=== PATIENT | female | born 1950 | race Caucasian/White ===

== ENCOUNTER → 2016-05-24 | Outpatient (CLI) | payer BC ==
[~2016-05-24] MED LIST: CHOL1000 PO; CIPR1TAB11 PO; FURO-85 PO; HYDR-5688 PO; IBAN150T PO; LIFI5DRO OPB; NITR1CAP16 PO; TAMS0.4C38 PO
--- NOTE | 2016-05-24 15:35 | MAMMOGRAPHY REPORT ---
BILATERAL DIGITAL SCREENING MAMMOGRAM WITH CAD: 05/24/2016 CLINICAL HISTORY: Routine screening. Patient has no complaints. TECHNIQUE: Current study was also evaluated with a Computer Aided Detection (CAD) system. Bilatera l CC and MLO views were obtained. COMPARISON: Comparison is made to exams dated: 05/15/2015 mammogram, 05/10/2014 mammogram, 03/24/2013 m ammogram, 03/19/2012 mammogram, 02/04/2011 mammogram, and 02/02/2010 mammogram - [facility]. BREAST COMPOSITION: There are scattered areas of fibroglandular density in both breasts. FINDINGS: No suspicious masses, calcifications, or areas of architectural distortion are noted in e ither breast. There has been no significant interval change compared to prior exams. IMPRESSION: ACR BI-RADS CATEGORY 1: NEGATIVE There is no mammographic evidence of malignancy. A 1 year screening mammogram is recommended. The p atient will receive written notification of the results. Approximately 10% of breast cancers are not detected with mammography. A negative mammographic repor t should not delay biopsy if a clinically suggestive mass is present. Alva Myles M.D. ah/:05/24/2016 14:57:06 Flight Test Shop Mechanic: Raj KHALIL(Tremayne)(M), [facility] letter sent: Normal 1/2 BI-RADS Code: ACR BI-RADS Category 1: Negative
== END | disposition home or self-care (01) ==
LOC: C.MAMM 13:57
PROVIDERS: ATTEND Obstetrics & Gynecology
DX: Z12.31 Encounter for screening mammogram for malignant neoplasm of breast (principal)

== ENCOUNTER → 2016-11-22 | Day surgery (SDC) | payer BC ==
[2016-11-19 09:31] VITALS: Ht 172.7 cm; Wt 65.9 kg
[~2016-11-22] VITALS: Ht 172.7 cm; Wt 65.9 kg
[~2016-11-22] MED LIST changes: +ATROPINE SULFATE 0.1 MG/ML 5ML SYR IV PRN; +CEFTRIAXONE 1000 MG IV SCH; +CEFTRIAXONE SOD INJ 1000 MG in DEXTROSE 5% 50ML XX SCH; -CIPR1TAB11 PO; +EpHEDrine SULFATE 50MG/5ML SYR ONE; +EpHEDrine SULFATE INJ 50 MG/ML AMP IV PRN; +FENTANYL CITRATE INJ 50 MCG/1 ML 2 ML VIAL IV PRN; +FENTANYL CITRATE INJ 50 MCG/1 ML 2 ML VIAL ONE; -FURO-85 PO; +LACTATED RINGER'S 1000ML 1,000 ML IV SCH; +LIDOCAINE HCL 2% 2 ML VIAL (20MG/ML) ONE; +MIDAZOLAM HCL 1 MG/ML 2ML VIAL ONE; +ONDANSETRON INJ 2 MG/ML 2 ML VIAL IV PRN; +ONDANSETRON INJ 2 MG/ML 2 ML VIAL ONE; +PROMETHAZINE HCL INJ 6.25 MG in SODIUM CHLORIDE 0.9% 50ML 50 ML IV PRN; +PROPOFOL IV EMULSION 10 MG/ML 20 ML VIAL IV ONE
--- NOTE | 2016-11-22 06:48 | History & Physical Bridge Note ---
H&P Re-Evaluation Bridge Note: I have examined the patient, reviewed the History & Physical and in the interval since the performance of the History & Physical I have noted the following changes of clinical significance: No changes noted
--- NOTE | 2016-11-22 08:02 | [facility] Operative Report ---
Operative Report Operative Date Nov 22, 2016. Pre-Operative Diagnosis Right Renal Stone Post-Operative Diagnosis Same Procedure(s) Performed Right Extracorporeal Shock Wave Lithotripsy Surgeon Dr. Roldan Fuel Pilot Engineer Surgeon(s) None Estimated Blood Loss 0mL Findings radio-opaque right kidney stones Fluids (cc crystalloids) 1100mL Specimens None Drains none Anesthesia LMA Complication(s) None Disposition Recovery Room / PACU Indications enlarging right renal stone Description of Procedure Patient had general LMA anesthesia and was placed in supine position with her right flank pressed against the head of lithotripsy machine. Fluoro was used to position the stone in the crosshairs of the focal point. We delivered 200 shocks at low power and then observed a 2 minute rest. We then delivered a total of 2400 shocks gradually increasing the power. The stone was seen to spread out during treatment. She tolerated procedure well and transferred to recovery in stable condition. Plan; home today strain urine to gather a few pieces. 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 I attest to the content of the Intraoperative Record and any orders documented therein. Any exceptions are noted below.
--- NOTE | 2016-11-22 08:08 | Discharge Instructions ---
Discharge Instructions Date of Service Nov 22, 2016. Admission Reason for Admission: Right Kidney Stone Discharge Discharge Diagnosis / Problem: right kidney stones Discharge Goals Goal(s): Improve disease control Activity Recommendations Activity Limitations: resume your previous activity Lifting Limitations: none Exercise/Sports Limitations: none Shower/Bathe: no limitations Driving or Machine Use: resume 1 day after discharge . Instructions / Follow-Up Instructions / Follow-Up drink extra water lie on left side to encourage passage of stones out of right kidney strain urine to catch a few fragments take flomax daily to ease pain with stone passage take macrobid 2 x per day to cover against any infection in the stone use ibuprofen for mild to moderate pain 600mg every 8 hours with food use narcotic for severe pain we will get an x-ray in 3-4 weeks to see how stone is breaking up Discharge Diet Recommended Diet: Regular Diet Procedures Procedures Performed: Right Extracorporeal Shock Wave Lithotripsy Pending Studies Studies pending at discharge: no Medical Emergencies . Who to Call and When: Medical Emergencies: If at any time you feel your situation is an emergency, please call 911 immediately. . Non-Emergent Contact Non-Emergency issues call your: Urologist ([phone] or [phone]) Call Non-Emergent contact if: temperature is above 100.5, your pain is not controlled . . "Provider Documentation" section prepared by Karla Roldan. . VTE Core Measure Inpt VTE Proph given/why not?: SCD's [place] Drug Monitoring Program Search Results: patient reviewed within database, no issues identified
[2016-11-22 08:39] VITALS: TEMP 36.5
--- NOTE | 2016-11-22 08:51 | Anesthesia Progress Nt - [facility] ---
Anesthesia Post Op Note Date & Time Nov 22, 2016 at 08:51 Vital Signs Pain Intensity: 0 Vital Signs Past 12 Hours Date Time Temp Pulse Resp B/P (MAP) Pulse Ox O2 Delivery O2 Flow Rate FiO2 11/22/16 08:39 36.5 73 20 96/58 (71) 98 Room Air 11/22/16 08:31 103/67 11/22/16 08:30 36.8 70 14 114/58 98 Room Air 11/22/16 08:27 67 17 99 11/22/16 08:27 68 17 11/22/16 08:26 114/58 11/22/16 08:22 77 23 11/22/16 08:22 23 11/22/16 08:21 110/57 11/22/16 08:20 75 17 100 11/22/16 08:20 71 17 11/22/16 08:16 118/62 11/22/16 08:15 72 14 11/22/16 08:15 73 14 100 11/22/16 08:11 117/61 11/22/16 08:10 71 15 100 11/22/16 08:10 72 15 11/22/16 08:06 116/59 11/22/16 08:05 71 17 11/22/16 08:05 69 17 100 11/22/16 08:01 118/66 11/22/16 08:00 36.4 74 12 118/66 100 Diffusion Mask 6 11/22/16 06:32 36.6 68 18 102/65 (77) 95 Room Air Notes Mental Status: alert / awake / arousable, participated in evaluation Pt Amnestic to Procedure: Yes Nausea / Vomiting: adequately controlled Pain: adequately controlled Airway Patency, RR, SpO2: stable & adequate BP & HR: stable & adequate Hydration State: stable & adequate Anesthetic Complications: no major complications apparent
[2016-11-22 09:12] VITALS: BP 111/59; PULSE 64; O2SAT 99
== END | disposition home or self-care (01) ==
LOC: X.SURG 06:19
PROVIDERS: ATTEND Urology
DX: N20.0 Calculus of kidney (principal); Z87.442 Personal history of urinary calculi

== ENCOUNTER → 2017-07-02 | Outpatient (CLI) | payer BC ==
[~2017-07-02] MED LIST changes: -ATROPINE SULFATE 0.1 MG/ML 5ML SYR IV PRN; -CEFTRIAXONE 1000 MG IV SCH; -CEFTRIAXONE SOD INJ 1000 MG in DEXTROSE 5% 50ML XX SCH; -EpHEDrine SULFATE 50MG/5ML SYR ONE; -EpHEDrine SULFATE INJ 50 MG/ML AMP IV PRN; -FENTANYL CITRATE INJ 50 MCG/1 ML 2 ML VIAL IV PRN; -FENTANYL CITRATE INJ 50 MCG/1 ML 2 ML VIAL ONE; -HYDR-5688 PO; -LACTATED RINGER'S 1000ML 1,000 ML IV SCH; -LIDOCAINE HCL 2% 2 ML VIAL (20MG/ML) ONE; -MIDAZOLAM HCL 1 MG/ML 2ML VIAL ONE; -NITR1CAP16 PO; -ONDANSETRON INJ 2 MG/ML 2 ML VIAL IV PRN; -ONDANSETRON INJ 2 MG/ML 2 ML VIAL ONE; -PROMETHAZINE HCL INJ 6.25 MG in SODIUM CHLORIDE 0.9% 50ML 50 ML IV PRN; -PROPOFOL IV EMULSION 10 MG/ML 20 ML VIAL IV ONE; -TAMS0.4C38 PO
--- NOTE | 2017-07-02 15:24 | MAMMOGRAPHY REPORT ---
BILATERAL DIGITAL SCREENING MAMMOGRAM TOMOSYNTHESIS WITH CAD: 07/02/2017 CLINICAL HISTORY: Routine screening. Patient has no complaints. TECHNIQUE: Breast tomosynthesis in addition to standard 2D mammography was performed. Current study was also evaluated with a Computer Aided Detection (CAD) system. COMPARISON: Comparison is made to exams dated: 05/24/2016 mammogram, 05/15/2015 mammogram, 05/10/2014 ma mmogram, 03/24/2013 mammogram, 02/04/2011 mammogram, and 02/02/2010 mammogram - [facility]. BREAST COMPOSITION: There are scattered areas of fibroglandular density in both breasts. FINDINGS: No suspicious masses, calcifications, or areas of architectural distortion are noted in ei ther breast. There has been no significant interval change compared to prior exams. IMPRESSION: ACR BI-RADS CATEGORY 1: NEGATIVE There is no mammographic evidence of malignancy. A 1 year screening mammogram is recommended. The pa tient will receive written notification of the results. Approximately 10% of breast cancers are not detected with mammography. A negative mammographic report should not delay biopsy if a clinically suggestive mass is present. Alva Myles M.D. ah/:07/02/2017 12:14:33 Commission Auditor: Sophie KHALIL(Tremayne)(E[place]), [facility] letter sent: Normal 1/2 BI-RADS Code: ACR BI-RADS Category 1: Negative
== END | disposition home or self-care (01) ==
LOC: C.MAMM 11:37
PROVIDERS: ATTEND Obstetrics & Gynecology
DX: Z00.00 Encounter for general adult medical examination without abnormal findings (principal)

== ENCOUNTER 2020-04-11 11:36 | Inpatient (IN) ==
--- NOTE | 2020-04-11 12:05 | Emergency Department Note ---
Impression & Plan Closed fracture of left hip, Fall ED Provider Note NAME: DAINA VIDALES AGE: 70 SEX: F : 1950 ARRIVES VIA: Walk-In INFORMANT: [Patient] ED PROVIDER(S): [Lane Mccallum MD] CHIEF COMPLAINT: Hip pain HISTORY OF PRESENT ILLNESS: The patient is a 70-year-old female who states that last night around 9:00, 15 hours ago, she tripped over her feet and fell onto her left hip. She states that she has 9/10 pain to try to walk, sitting still she has no pain. She de nies any loss of consciousness, she has no neck pain or headache or back pain. No chest pain or abdominal pain. No numbness down the left leg. Since today she was still having as much discomfort as last evening, she came for evaluation, she is concerned for fracture. REVIEW OF SYSTEMS: See HPI for pertinent positives and negatives. A total of ten systems were revi ewed and were otherwise negative. PMHx/PSHx: See Below SOCIAL HISTORY: See Below. PHYSICAL EXAM: GENERAL: Patient is in no acute distress. HEENT: No acute trauma, normocephalic atraumatic, mucous membranes moist, no nasal congestion, no scleral icterus. NECK: No stridor, no adenopathy, no meningismus, trachea is midline. LUNGS: Clear to auscultation bilaterally, no wheeze, no rhonchi, breath sounds equal. HEART: Without murmurs gallops or rubs, regular rate and rhythm. ABDOMEN: Soft, nontender, bowel sounds positive, no hernias, no peritonitis. EXTREMITIES: No cyanosis or edema. The patient does have some pain to move the left hip. No obvious gross deformity to the left lower extremity. No pain to palpate the bones of the left hip. The pelvis is stable with rock. She has strong distal left lower extremity pulses. NEUROLOGIC: Oriented x 3, no acute motor or sensory deficits, no focal weakness. SKIN: No rash, no jaundice, no diaphoresis. DIFFERENTIAL DIAGNOSIS: Muscular strain, fracture, dislocation, DVT, joint effusion, infection, soft tissue injury, vascular compromise, as well as other pathologies. EMERGENCY DEPARTMENT COURSE/PROCEDURES: ECG: Indication was hip fracture. The ECG shows a normal sinus rhythm with a rate of 69. There is no ST elevation, no PVCs. The QTc is 437. Continuous Cardiac Monitoring: An order was placed for continuous cardiac monitoring. The monitor shows a rate of 73 with normal sinus rhythm. MEDICAL DECISION MAKING: There is no leukocytosis or concerning anemia. There is a normal platelet count. No coagulopathy. No significant electrolyte abnormality or kidney failure. No concerning liver enzyme elevation. Urinalysis returned showing the possibility of an infection. Pelvis and left hip films showed a potential subtle fracture to the left hip, no significant deformity, no left hip dislocation. CT of the left hip did show a subtle nondisplaced hip fracture. Chest film did not show pneumonia, CHF or mediastinal widening. ECG showed a sinus rhythm, no acute ischemia. On exam, the patient did have some pain to move the left hip but no pain when she was sitting still. She was not toxic or febrile. The patient is in need of a hospital stay. She has fractured her hip from the fall. I discussed the findings with the patient. I did speak with case management, I discussed the findings with her son who is a physician at this [facility]. The on-call hospitalist has been consulted. Orthopedics has been consulted. It appears the only serious injury from this fall was to the left hip. Past Med/Surg History Medical History ASCVD (arteriosclerotic cardiovascular disease) Cystocele History of nephrolithiasis Osteoporosis Vaginal pessary in situ Surgical History History of colonoscopy History of oophorectomy Family History Mother Alive and well Father , 76 Stroke Social History Smoking Status: Former smoker Smoking End Date: 1987; Second Hand Exposure: No; Do You Dip or Chew Tobacco: No (quit 32 years ago); Tobacco Cessation Education Requested by Patient: No Hx Alcohol Use: Yes Alcohol type: wine Hx Substance Use: No Preferred Language: Sinhala Mechanical Estimator Required: No Beliefs That Will Affect Care: None marital status: Current Living Situation: Parent Current Living Situation Comment: takes care of 99 year old mother Other Information That Helps Us Care for You: No Feels Safe at Home: Yes Safety Concerns: Feels Safe At This Time Assistive Devices: Walker Allergies Allergies Allergy/AdvReac Type Severity Reaction Status Date / Time No Known Allergies Allergy Unverified 04/11/20 13:03 Home Meds Home Medications Medication Instructions Recorded Confirmed cholecalciferol (vitamin D3) 10 mcg PO DAILY 04/11/20 04/11/20 conjugated estrogens [Premarin] 1 applic VAGINAL WK 04/11/20 04/11/20 ibandronate 150 mg PO MONTHLY 04/11/20 04/11/20 lifitegrast [Xiidra] 1 drp OPB QAM 04/11/20 04/11/20 Results & Data (ED) Vital Signs Vital Signs - 24 hr 04/11/20 11:44 04/11/20 14:08 Temperature 36.9 C Temperature Source Oral Pulse Rate 67 85 Pulse Rate from SpO2 Sensor 85 Pulse Rhythm Regular Pulse Strength Normal Respiratory Rate 20 16 Respiratory Effort / Characteristics Non-Labored Respiratory Depth Normal Respiratory Pattern Regular Blood Pressure 128/74 103/54 L Blood Pressure Mean 92 70 Blood Pressure Position Sitting Pulse Oximetry 98 99 Oxygen Delivery Method Room Air Sepsis Recent Fever Within 48 Hours No Sepsis New/Unexplained Change in Mental Status No Sepsis Action Taken by Nursing No Action Required Home Medications Current Medication List: was personally reviewed by me Laboratory Data Attestation: I reviewed the patient's lab results. Result diagrams: 04/11/20 13:12 04/11/20 13:12 Lab Results 04/11/20 04/11/20 04/11/20 Range/Units 13:12 13:12 13:12 WBC 4.34 L (4.8-10.8) K/uL RBC 3.97 L (4.2-5.4) M/uL Hgb 12.3 (12.0-16.0) g/dL Hct 37.5 (37-47) % MCV 94.5 (80-100) fL MCH 31.0 (25-34) pg MCHC 32.8 (32-36) g/dL RDW Std Deviation 47.1 H (36.4-46.3) fL RDW Coeff of Oksana 13.6 (11.5-14.5) % Plt Count 165 (130-400) K/uL MPV 10.9 H (7.4-10.4) fL Immature Gran % (Auto) 0.2 % Neut % (Auto) 68.8 % Lymph % (Auto) 20.5 % Bent % (Auto) 9.4 % Eos % (Auto) 0.9 % Baso % (Auto) 0.2 % Neut # (Auto) 2.98 (1.4-6.5) K/uL Lymph # (Auto) 0.89 L (1.2-3.4) K/uL Bent # (Auto) 0.41 (0.11-0.59) K/uL Eos # (Auto) 0.04 (0-0.5) K/uL Baso # (Auto) 0.01 (0-0.2) K/uL Immature Gran # (Auto) 0.01 (0.00-0.02) K/uL PT 10.0 (9.0-12.0) Seconds INR 1.0 (0.9-1.1) APTT 25.4 (21.0-31.0) Seconds PTT Ratio 1.0 Sodium (136-145) mmol/L Potassium (3.5-5.1) mmol/L Chloride (98-107) mmol/L Carbon Dioxide (21-32) mmol/L Anion Gap (3-11) BUN (7-18) mg/dl Creatinine (0.6-1.2) mg/dl Est Cr Clr Drug Dosing ml/min Est GFR ( Amer) Est GFR (Non-Af Amer) BUN/Creatinine Ratio (10-20) Glucose (70-99) mg/dl Calcium (8.5-10.1) mg/dl Total Bilirubin (0.2-1) mg/dl AST (15-37) U/L ALT (12-78) U/L Alkaline Phosphatase (45-117) U/L Total Protein (6.4-8.2) gm/dl Albumin (3.4-5.0) gm/dl Globulin (2.5-4.0) gm/dl Albumin/Globulin Ratio (0.9-2) COVID-19 Eval Order SARS-CoV-2, RNA, NAAT (NEGATIVE) Blood Type O Positive Antibody Screen NEGATIVE 04/11/20 04/11/20 04/11/20 Range/Units 13:12 14:10 14:10 WBC (4.8-10.8) K/uL RBC (4.2-5.4) M/uL Hgb (12.0-16.0) g/dL Hct (37-47) % MCV (80-100) fL MCH (25-34) pg MCHC (32-36) g/dL RDW Std Deviation (36.4-46.3) fL RDW Coeff of Oksana (11.5-14.5) % Plt Count (130-400) K/uL MPV (7.4-10.4) fL Immature Gran % (Auto) % Neut % (Auto) % Lymph % (Auto) % Bent % (Auto) % Eos % (Auto) % Baso % (Auto) % Neut # (Auto) (1.4-6.5) K/uL Lymph # (Auto) (1.2-3.4) K/uL Bent # (Auto) (0.11-0.59) K/uL Eos # (Auto) (0-0.5) K/uL Baso # (Auto) (0-0.2) K/uL Immature Gran # (Auto) (0.00-0.02) K/uL PT (9.0-12.0) Seconds INR (0.9-1.1) APTT (21.0-31.0) Seconds PTT Ratio Sodium 141 (136-145) mmol/L Potassium 3.8 (3.5-5.1) mmol/L Chloride 108 H (98-107) mmol/L Carbon Dioxide 27 (21-32) mmol/L Anion Gap 6.0 (3-11) BUN 10 (7-18) mg/dl Creatinine 0.86 (0.6-1.2) mg/dl Est Cr Clr Drug Dosing 58.4 ml/min Est GFR ( Amer) 78.8 Est GFR (Non-Af Amer) 68.0 BUN/Creatinine Ratio 12.1 (10-20) Glucose 93 (70-99) mg/dl Calcium 8.3 L (8.5-10.1) mg/dl Total Bilirubin 0.6 (0.2-1) mg/dl AST 19 (15-37) U/L ALT 22 (12-78) U/L Alkaline Phosphatase 57 (45-117) U/L Total Protein 6.5 (6.4-8.2) gm/dl Albumin 3.5 (3.4-5.0) gm/dl Globulin 3.0 (2.5-4.0) gm/dl Albumin/Globulin Ratio 1.2 (0.9-2) COVID-19 Eval Order Covid19 IDNow [facility] SARS-CoV-2, RNA, NAAT NEGATIVE (NEGATIVE) Blood Type Antibody Screen Imaging Data Radiologist's Impression: XR hip LT 2V w pelvis HISTORY: 70 years-old Female fall, pain acute left-sided hip pain status post fall COMPARISON: CT abdomen and pelvis 11/03/2012 TECHNIQUE: AP view of the pelvis with 2 views of the left hip FINDINGS: Soft tissue prominence lateral to the bilateral hips. Mild bilateral hip osteoarthritis. No avascular necrosis or dislocation. Questioned cortical irregularity at the superior lateral femoral head neck junction on the left. No acute displaced fracture. Pelvic ring is intact. IMPRESSION: Questioned cortical irregularity at the lateral femoral head neck junction on the left is likely normal cortex with a subtle acute nondisplaced fracture considered less likely. CT hip LT wo con HISTORY: 70 years-old Female fall, pain, poss fx acute left hip pain status post fall COMPARISON: Pelvis and left hip radiographs of same day, CT abdomen and pelvis 11/03/2012. TECHNIQUE: Multiple axial CT images of the left hip were obtained without the use of IV contrast. A dose lowering technique was used consistent with the principals of ALARA. FINDINGS: There is a subtle acute nondisplaced subcapital fracture of the left femur which is best seen on the coronal images (for example image 36 series 300 with mild adjacent subcortical sclerosis/impaction. This is also seen on image 73 of series 3. Mild left hip osteoarthritis. No acute displaced fracture or avascular necrosis. The left pelvic ring appears intact. Small left hip joint effusion. Pessary noted within the vagina. IMPRESSION: Confirmation of the acute nondisplaced subcapital fracture of the left femur. XR chest 1V portable HISTORY: 70 years-old Female poss hip fx acute fracture of the left hip COMPARISON: Chest radiograph 11/05/2012 TECHNIQUE: Portable AP view of the chest FINDINGS: Cardiomediastinal and hilar silhouettes are within normal limits. No pneumothor ax, pleural effusion, airspace consolidation or overt pulmonary edema. Bones of the chest appear grossly intact. IMPRESSION: No acute process. Head Trauma GCS Score: 15 Discharge Plan Visit Data Chief Complaint: Hip Pain Stated Complaint: FELL HURT LEFT HIP ED Provider: Lane Mccallum Discharge Problem: Closed fracture of left hip, Fall Patient Disposition: Admitted As Inpatient Condition: Good Discharge Instructions Interventions: ED Discharge Assessment Last Done: 04/11/20 16:45 Discharge Problem: Closed fracture of left hip Qualifiers: Encounter type: initial encounter Qualified Code(s): S72.002A - Fracture of unspecified part of neck of left femur, initial encounter for closed fracture Fall Qualifiers: Encounter type: initial encounter Qualified Code(s): W19.XXXA - Unspecified fall, initial encounter
--- NOTE | 2020-04-11 13:00 | XRay Report ---
XR hip LT 2V w pelvis HISTORY: 70 years-old Female fall, pain acute left-sided hip pain status post fall COMPARISON: CT abdomen and pelvis 11/03/2012 TECHNIQUE: AP view of the pelvis with 2 views of the left hip FINDINGS: Soft tissue prominence lateral to the bilateral hips. Mild bilateral hip osteoarthritis. No avascular necrosis or dislocation. Questioned cortical irregularity at the superior lateral femoral head neck junction on the left. No acute displaced fracture. Pelvic ring is intact. IMPRESSION: Questioned cortical irregularity at the lateral femoral head neck junction on the left is likely normal cortex with a subtle acute nondisplaced fracture considered less likely. ACT 112: Negative or not required by law. The above report was generated using voice recognition software. It may contain grammatical, syntax o r spelling errors. Electronically signed by: Lev Joseph M.D. 04/11/2020 12:59 PM
[2020-04-11 13:25] LABS: Basophils # (auto) 0.01 K/uL (0-0.2); Basophils % (auto) 0.2 %; Eosinophils # (auto) 0.04 K/uL (0-0.5); Eosinophils % (auto) 0.9 %; Hematocrit (blood only) 37.5 % (37-47); Hemoglobin 12.3 g/dL (12.0-16.0); Immature Granulocytes # (auto) 0.01 K/uL (0.00-0.02); Immature Granulocytes % (auto) 0.2 %; Lymphocytes # (auto) 0.89 K/uL (1.2-3.4); Lymphocytes % (auto) 20.5 %; Mean Corpuscular Hgb Conc 32.8 g/dL (32-36); Mean Corpuscular Volume 94.5 fL (80-100); Mean Platelet Volume 10.9 fL (7.4-10.4); Monocytes # (auto) 0.41 K/uL (0.11-0.59); Monocytes % (auto) 9.4 %; Neutrophils # (auto) 2.98 K/uL (1.4-6.5); Neutrophils % (auto) 68.8 %; Platelet Count 165 K/uL (130-400); RDW Coefficient of Variation 13.6 % (11.5-14.5); RDW Standard Deviation 47.1 fL (36.4-46.3); Red Blood Count 3.97 M/uL (4.2-5.4); White Blood Count 4.34 K/uL (4.8-10.8)
[2020-04-11 13:41] LABS: Partial Thromboplastin Time 25.4 Seconds (21.0-31.0)
--- NOTE | 2020-04-11 13:50 | CT Scan Report ---
CT hip LT wo con HISTORY: 70 years-old Female fall, pain, poss fx acute left hip pain status post fall COMPARISON: Pelvis and left hip radiographs of same day, CT abdomen and pelvis 11/03/2012. TECHNIQUE: Multiple axial CT images of the left hip were obtained without the use of IV contrast. A d ose lowering technique was used consistent with the principals of HOA. FINDINGS: There is a subtle acute nondisplaced subcapital fracture of the left femur which is best seen on the coronal images (for example image 36 series 300 with mild adjacent subcortical sclerosis/impaction. T his is also seen on image 73 of series 3. Mild left hip osteoarthritis. No acute displaced fracture o r avascular necrosis. The left pelvic ring appears intact. Small left hip joint effusion. Pessary not ed within the vagina. IMPRESSION: Confirmation of the acute nondisplaced subcapital fracture of the left femur. ACT 112: Negative or not required by law. The above report was generated using voice recognition software. It may contain grammatical, syntax o r spelling errors. Electronically signed by: Lev Joseph M.D. 04/11/2020 1:48 PM
[2020-04-11 13:51] LABS: Albumin Level 3.5 gm/dl (3.4-5.0); BUN Creatinine Ratio 12.1 (10-20); Calcium 8.3 mg/dl (8.5-10.1); Creatinine Clr Calc Pharmacy 58.4 ml/min; Est GFR (African American) 78.8; Potassium 3.8 mmol/L (3.5-5.1)
[2020-04-11 13:53] LABS: Albumin Globulin Ratio 1.2 (0.9-2); Bilirubin,Total 0.6 mg/dl (0.2-1); Total Protein 6.5 gm/dl (6.4-8.2)
--- NOTE | 2020-04-11 13:55 | XRay Report ---
XR chest 1V portable HISTORY: 70 years-old Female poss hip fx acute fracture of the left hip COMPARISON: Chest radiograph 11/05/2012 TECHNIQUE: Portable AP view of the chest FINDINGS: Cardiomediastinal and hilar silhouettes are within normal limits. No pneumothorax, pleural effusion, airspace consolidation or overt pulmonary edema. Bones of the chest appear grossly intact. IMPRESSION: No acute process. ACT 112: Negative or not required by law. The above report was generated using voice recognition software. It may contain grammatical, syntax o r spelling errors. Electronically signed by: Lev Joseph M.D. 04/11/2020 1:53 PM
--- NOTE | 2020-04-11 14:45 | History & Physical Report ---
Date of Service April 11, 2020 Assessment & Plan (1) Subcapital fracture of left femur: (2) Osteoporosis: This is a 70-year-old female who has significant past medical history of osteoporosis, history of kidney stones, cystocele who presents to ED after sustaining mechanical fall x1 day ago. CT L femur revealed acute nondisplaced subcapital fracture of the left femur CXR no acute disease, ECG NSR 69bpm Pt very active, able to complete 4 METS of activity without cardiovascular sx, no prior hx of cardiovascular disease or HTN Last echo 2014 unremarkable admit to med/surg Consult orthopedics - UOC keep NPO until determine if/when surgery to be performed bed rest ibuprofen, Hydrocodone/APAP, IV morphine prn for pain control bowel regimen ordered gentle IVF SCD/TEDS for now until surgery timing determined continue vit d supplement and Boniva Dispo:Med/surg PCP: Alonso FULL CODE Pt was seen and examined in collaboration with Dr. Urrutia, please see addendum (3) Osteoporotic fracture of left hip: (4) UTI (urinary tract infection): History of Present Illness Chief Complaint: Mechanical fall x 1 day ago. Primary Care Provider: Nick Gupta, DO This is a 70-year-old female who has significant past medical history of osteoporosis, history of kidney stones, cystocele who presents to ED after sustaining mechanical fall x1 day ago. Patient states, "I tripped over my own feet." She landed on her left side and has been having difficulty ambulating ever since. She has been using a cane in her mother's walker. She is very concerned as she takes care of her 99-year-old mother and wishes to return home. Unfortunately imaging in ED revealed a acute nondisplaced left subcapital femur fracture. Currently she has no pain when sitting still. However when she is up and ambulating pain goes to a 10 out of 10. She denies any loss of consciousness, syncope or hitting head prior to fall. Fall was purely mechanical. No prior history of fractures. She is very active still hiking, doing her own yard work, taking care of her 99-year-old mother and she shoveled her driveway, "3 times yesterday." She denies any recent fever, chills, sweats, lightheadedness, dizziness, chest pain, shortness of breath, cough, hemoptysis, nausea, vomiting, abdominal pain, change in bowel or urinary habits. She feels she overall eats a healthy lifestyle. Her son is paste up worker in our hospital. She wishes to return to her active lifestyle. No hx of reaction to anesthesia. In ED she remained hemodynamically stable. Her CBC and CMP generally unremarkable. Chest x-ray without acute abnormality. Hip CT confirmed the acute nondisplaced left subcapital femur fracture. Allergies Allergy/AdvReac Type Severity Reaction Status Date / Time No Known Allergies Allergy Unverified 04/11/20 13:03 Home Medications Medication Instructions Recorded Confirmed Type cholecalciferol (vitamin D3) 10 mcg PO DAILY 04/11/20 04/11/20 History conjugated estrogens [Premarin] 1 applic VAGINAL WK 04/11/20 04/11/20 History ibandronate 150 mg PO MONTHLY 04/11/20 04/11/20 History lifitegrast [Xiidra] 1 drp OPB QAM 04/11/20 04/11/20 History Past Med/Surg History Medical History ASCVD (arteriosclerotic cardiovascular disease) Cystocele History of nephrolithiasis Osteoporosis Vaginal pessary in situ Surgical History History of colonoscopy History of oophorectomy Family History Mother Alive and well Father , 76 Stroke Social History Smoking Status: Former smoker Smoking End Date: 1987; Second Hand Exposure: No; Do You Dip or Chew Tobacco: No (quit 32 years ago); Tobacco Cessation Education Requested by Patient: No Hx Alcohol Use: Yes Alcohol type: wine Hx Substance Use: No Preferred Language: Burkin[place] Level Vial Setter Required: No Beliefs That Will Affect Care: None marital status: Current Living Situation: Parent Current Living Situation Comment: takes care of 99 year old mother Other Information That Helps Us Care for You: No Feels Safe at Home: Yes Safety Concerns: Feels Safe At This Time Assistive Devices: Walker Review of Systems Review of Systems: All systems reviewed & are unremarkable except as noted in HPI & below Physical Exam Physical Exam: Constitutional: WD/WN, vitals as above, NAD, sitting up in bed, pleasant, conversing easily Head: Normocephalic, Atraumatic Eyes: PERRL, conjunctivae normal, anicteric sclerae ENMT: external ear and nose normal, oropharynx normal Neck: trachea midline, no thyromegaly normal visual inspection Respiratory: normal respiratory effort, lungs clear to auscultation, no wheeze, rales, rhonchi. Normal insp/exp effort, no accessory muscle use Cardiovascular: RRR, no murmur, no edema Vessels: no JVD or carotid bruit Chest: normal inspection of chest Abdomen: normal bowel sounds, soft, nontender, no hepatosplenomegaly Musculoskeletal: no cyanosis or clubbing, extremities motor strength 5/5 b/l upper ext, neurovascularly intact, B/L lower ext not tested given fracture Skin: no rashes, warm and dry normal turgor Neurologic: PERRL, EOMI, accommodation nl, no face palsy, no dysarthria CN's II-XI intact bilaterally and moves all extremities Psychiatric: A+Ox3, euthymic affect Lymphatic: no cervical or axillary lymphadenopathy : deferred Results & Data Results & Data ([facility]) Vital Signs (Past 12 Hours) Vital Signs Temp Pulse Resp BP Pulse Ox 04/11/20 11:44 36.9 C 67 20 128/74 98 Laboratory Results Short CBC 04/11/20 Range/Units 13:12 WBC 4.34 L (4.8-10.8) K/uL Hgb 12.3 (12.0-16.0) g/dL Hct 37.5 (37-47) % Plt Count 165 (130-400) K/uL BMP 04/11/20 13:12 Sodium 141 Potassium 3.8 Chloride 108 H Carbon Dioxide 27 BUN 10 Creatinine 0.86 Glucose 93 Calcium 8.3 L Liver Function 04/11/20 Range/Units 13:12 Total Bilirubin 0.6 (0.2-1) mg/dl AST 19 (15-37) U/L ALT 22 (12-78) U/L Alkaline Phosphatase 57 (45-117) U/L Albumin 3.5 (3.4-5.0) gm/dl Urine 04/11/20 Range/Units 16:40 Urine Color Yellow Urine Appearance Clear (Clear) Urine pH 8.5 H (4.5-7.5) Ur Specific [place] 1.011 (1.000-1.030) Urine Protein Negative (Negative) Urine Glucose (UA) Negative (Negative) Diagnostic Findings Hip CT: FINDINGS: There is a subtle acute nondisplaced subcapital fracture of the left femur which is best seen on the coronal images (for example image 36 series 300 with mild adjacent subcortical sclerosis/impaction. This is also seen on image 73 of series 3. Mild left hip osteoarthritis. No acute displaced fracture or avascular necrosis. The left pelvic ring appears intact. Small left hip joint effusion. Pessary noted within the vagina. IMPRESSION: Confirmation of the acute nondisplaced subcapital fracture of the left femur. CXR: IMPRESSION: No acute process. Hip/Pelvis Xray: IMPRESSION: Questioned cortical irregularity at the lateral femoral head neck junction on the left is likely normal cortex with a subtle acute nondisplaced fracture considered less likely. COVID-19 Results Results COVID-19 Adm Lab Results: RBC 3.97 M/uL (4.2-5.4) L 04/11/20 WBC 4.34 K/uL (4.8-10.8) L 04/11/20 Hgb 12.3 g/dL (12.0-16.0) 04/11/20 Hct 37.5 % (37-47) 04/11/20 Plt Count 165 K/uL (130-400) 04/11/20 Neutrophils (%) (Auto) 68.8 % 04/11/20 Lymphocytes (%) (Auto) 20.5 % 04/11/20 Monocytes # (Auto) 0.41 K/uL (0.11-0.59) 04/11/20 Eosinophils # (Auto) 0.04 K/uL (0-0.5) 04/11/20 Immature Granulocyte % (Auto) 0.2 % 04/11/20 Neutrophils # (Auto) 2.98 K/uL (1.4-6.5) 04/11/20 Lymphocytes # (Auto) 0.89 K/uL (1.2-3.4) L 04/11/20 Monocytes # (Auto) 0.41 K/uL (0.11-0.59) 04/11/20 Eosinophils # (Auto) 0.04 K/uL (0-0.5) 04/11/20 Basophils # (Auto) 0.01 K/uL (0-0.2) 04/11/20 Immature Granulocyte # (Auto) 0.01 K/uL (0.00-0.02) 04/11/20 Na 141 mmol/L (136-145) 04/11/20 K 3.8 mmol/L (3.5-5.1) 04/11/20 Cl 108 mmol/L (98-107) H 04/11/20 CO2 27 mmol/L (21-32) 04/11/20 Anion Gap 6.0 (3-11) 04/11/20 BUN 10 mg/dl (7-18) 04/11/20 Creatinine 0.86 mg/dl (0.6-1.2) 04/11/20 BUN/Creatinine Ratio 12.1 (10-20) 04/11/20 Glucose Level 93 mg/dl (70-99) 04/11/20 Ca 8.3 mg/dl (8.5-10.1) L 04/11/20 Total Bilirubin 0.6 mg/dl (0.2-1) 04/11/20 AST/SGOT 19 U/L (15-37) 04/11/20 ALT/SGPT 22 U/L (12-78) 04/11/20 Alkaline Phosphatase 57 U/L (45-117) 04/11/20 Total Protein 6.5 gm/dl (6.4-8.2) 04/11/20 Albumin 3.5 gm/dl (3.4-5.0) 04/11/20 Globulin 3.0 gm/dl (2.5-4.0) 04/11/20 Albumin/Globulin Ratio 1.2 (0.9-2) 04/11/20 PTT 25.4 Seconds (21.0-31.0) 04/11/20 INR 1.0 (0.9-1.1) 04/11/20 SARS-CoV-2, RNA, NAAT NEGATIVE (NEGATIVE) 04/11/20 Chest X-Ray 04/11/20 Code Status & VTE Plan Code Status Full Code VTE Prophylaxis Plan VTE Prophylaxis will be ordered: Yes Supervising Physician Co-Signing Physician Notes I have seen and examined the patient and have discussed the case with the provider above. I agree with the assessment and plan as stated. The patient is a 70-year-old female who presents with an osteoporotic fracture after sustaining a mechanical fall yesterday. Orthopedics has been consulted and recommends surgical repair. Her preoperative risk appears optimal as she is very active and independent at baseline with no symptoms or history of cardiovascular disease, chronic kidney disease, diabetes or other risk factors for perioperative issues. She also has no history of reaction to anesthesia and no reported history of DVT/PE. Standard DVT prophylaxis is recommended perioperatively. Appreciate orthopedic recommendations regarding continuation of bisphosphonates post-fracture. She is currently taking ibandronate. My physical exam is consistent with that above. Continue nonweightbearing status per orthopedic recommendations. Continue supportive care measures as outlined above. Labwork also revealed evidence of a positive urinalysis. One dose of Rocephin was given today and Ancef is ordered perioperatively. Defer further antibiotics to primary team in am based on culture results. Alea Urrutia DO [facility]
[2020-04-11] MEDS ORDERED: ALUMINUM/MAGNESIUM SUSP 30 ML UDC PO PRN (16:14)
[2020-04-11] MEDS ORDERED: NON-FORMULARY MEDICATION (Ibandronate 150 mg tablet) PO SCH (16:14)
[2020-04-11] MEDS ORDERED: NALOXONE HCL 0.4 MG/1 ML VIAL/CARP IV PRN (16:14)
[2020-04-11] MEDS ORDERED: ONDANSETRON INJ 2 MG/ML 2 ML VIAL IV PRN ×2 (16:14)
[2020-04-11] MEDS ORDERED: IBUPROFEN 200 MG TAB PO PRN (16:14)
[2020-04-11] MEDS ORDERED: ACETAMINOPHEN 325 MG TAB PO PRN (16:14)
[2020-04-11] MEDS ORDERED: HYDROCODONE/ACETAMOPHEN 5/325MG TAB PO PRN (16:14)
[2020-04-11] MEDS ORDERED: POLYETHYLENE (MIRALAX) 17 GM PACK PO PRN (16:14)
[2020-04-11] MEDS ORDERED: bisacodyL 10 MG SUPP PR PRN (16:14)
[2020-04-11] MEDS ORDERED: MAGNESIUM HYDROXIDE SUSP 30 ML UDC PO PRN ×2 (16:14)
[2020-04-11] MEDS ORDERED: MoRPHine SULFATE 4 MG/ML 1 ML CARP\\VIAL IV PRN (16:14)
[2020-04-11] MEDS ORDERED: MoRPHine SULFATE 2 MG/ML CARP IV PRN (16:14)
--- NOTE | 2020-04-11 16:33 | Anesthesiology Consultation ---
Date of Service April 11, 2020 Assessment & Plan Chart Review Chart Review: Acceptable Risk for Surgery and Patient NOT seen in Pre Admission Testing Consults Requested none ASA ASA3 History Surgery Operation Date: 04/12/20 07:00 Proposed Procedures p Left Hip 7.3 Cannulated Screw Open Reduction Internal Fixation - Octavio Herzog DO Height/Weight Height: 5 ft 9 in Weight: 66 kg Allergies Allergy/AdvReac Type Severity Reaction Status Date / Time No Known Allergies Allergy Unverified 04/11/20 13:03 Medications Home Medications Medication Instructions Recorded Confirmed Last Taken cholecalciferol (vitamin D3) 10 mcg PO DAILY 04/11/20 04/11/20 Unknown conjugated estrogens [Premarin] 1 applic VAGINAL WK 04/11/20 04/11/20 04/06/20 ibandronate 150 mg PO MONTHLY 04/11/20 04/11/20 03/13/20 lifitegrast [Xiidra] 1 drp OPB QAM 04/11/20 04/11/20 04/11/20 Past Medical History Medical History (Updated 04/11/20 @ 16:31 by Forest Lazaro MD) ASCVD (arteriosclerotic cardiovascular disease) Cystocele History of nephrolithiasis Osteoporosis Vaginal pessary in situ Exercise / Class Metabolic Activity III < 4 Walking/Shop/Light housework Past Family History Family History Mother Alive and well Father , 76 Stroke Past Surgical History Surgical History History of colonoscopy History of oophorectomy Past Anesthesia History No Hx of Anesthesia Complications and No Family Hx of Anesthesia Complications History of PONV No Hx of PONV and No Hx of Motion Sickness Social History Smoking Status: Former smoker Do You Dip or Chew Tobacco: No (quit 32 years ago) Smoking End Date: 1987 Hx Alcohol Use: Yes Alcohol type: wine alcohol intake frequency: holidays/special occasions only Hx Substance Use: No Physical Exam Vital Signs Last Vital Signs Temp 37.4 C 04/11/20 16:25 Pulse 74 04/11/20 16:25 Resp 18 04/11/20 16:25 BP 102/56 L 04/11/20 16:25 Pulse Ox 100 04/11/20 16:25 Testing Laboratory Results 04/11/20 13:12 04/11/20 13:12 PT 10.0 Seconds (9.0-12.0) 04/11/20 13:12 INR 1.0 (0.9-1.1) 04/11/20 13:12 APTT 25.4 Seconds (21.0-31.0) 04/11/20 13:12 Blood Type O Positive 04/11/20 13:12 Antibody Screen NEGATIVE 04/11/20 13:12 Electrocardiogram Date: 04/11/20 Findings: + NSR @ (at 68 w/ sinus arrhythmia) Chest X-Ray Date: 04/11/20 Findings: + NAD Echocardiogram Date: 11/06/12 EF: 55% LV Function: normal RWMA: + none Valvular Disease: + pertinent finding (moderate TR)
--- NOTE | 2020-04-11 16:55 | Electrocardiogram Report ---
Test Reason : Blood Pressure : / mmHG Vent. Rate : 069 BPM Atrial Rate : 069 BPM P-R Int : 138 ms QRS Dur : 080 ms QT Int : 408 ms P-R-T Axes : 056 056 057 degrees QTc Int : 437 ms Normal sinus rhythm with sinus arrhythmia Normal ECG When compared with ECG of 05-NOV-2012 14:08, [place] interval has increased Nonspecific T wave abnormality no longer evident in Inferior leads Confirmed by Harjeet Esqueda ([id number]) on 04/11/2020 4:55:34 PM Referred By: REFERRED SELF Confirmed By:Eliecer Esqueda
[2020-04-11] MEDS ORDERED: PNEUMOCOCCAL Polysaccharide Vaccine 25mcg/0.5mL vial/Syr IM ONE (17:00)
[2020-04-11] MEDS ORDERED: INFLUENZA VACCINE HIGH DOSE 65+ 0.7 ML SYR IM ONE (17:00)
--- NOTE | 2020-04-11 17:08 | Orthopedic Consultation ---
Date of Consultation April 11, 2020 Assessment & Plan (1) Subcapital fracture of left femur: X-rays have been reviewed. The patient is a very active 70-year-old female who takes care of her mother at home. She does not use any assistive devices but has been using a cane since the fall. Patient will likely need ORIF of the left subcapital hip fracture with 7.3 cannulated screws. I discussed with the patient that she needs to maintain her nonweightbearing status and that she should minimize her out of bed activities. I discussed the case with Dr. Herzog and Dr. Chu. We will plan for an OR time of around 1 PM pending OR room availability. Supervising Physician Co-Signing Physician Notes Patient seen in preoperative holding agree with above assessment and plan. Physical exam left lower extremity is neurovascular and sensory intact grossly, skin overlying left hip is clean dry and intact. I have indicated the patient for open reduction internal fixation left hip with cannulated screws, the risk, benefits, complications and alternatives to the procedure were explained to the patient in detail which include however not limited to infections, blood clots, acute blood loss, injury to surrounding nerves, bone, vessels, soft tissue, malunion, nonunion, arthrofibrosis, chronic pain, failure of the fixation, loss of reduction, need for additional surgery, push traumatic arthritis and AVN, loss of limb and loss of life. Alternatives include no surgery which could result and worsening symptoms of failure of fixation/displacement of the fracture site and need for additional surgery. The patient wished to proceed with surgical intervention at this time and informed consent was obtained. History of Present Illness Reason for Consultation: Left nondisplaced subcapital hip fracture Attending Physician: Alea Urrutia, History of Present Illness Patient is a 70-year-old white female who states that yesterday evening she was bringing her dog back in, and was in a hurry to get some other things done. She ended up tripping over something and lost her balance falling to the floor. She had pain in her left hip which radiated down the leg a little bit. He was able to get around a little bit and decided to wait and be seen today. She states that she was having some difficulty putting weight on the left leg. She had called [facility] and scheduled an appointment for this afternoon. Her son however came to see her and after examining her, felt she should go to the emergency room. She was seen by the staff here at the emergency room and x-rays were taken. There was a question of fracture of the left femoral neck on plain films and a CT scan was then ordered. This confirmed a nondisplaced femoral neck fracture. The patient denies hitting her head or losing consciousness at the time of the fall. There was no shortness of breath, chest pain, lightheadedness prior to or after the fall. She has been admitted by the [facility] physician group hospitalist service and we have been asked to take care of her hip fracture. Allergies Allergy/AdvReac Type Severity Reaction Status Date / Time No Known Allergies Allergy Unverified 04/11/20 13:03 Home Medications Medication Instructions Recorded Confirmed Type cholecalciferol (vitamin D3) 10 mcg PO DAILY 04/11/20 04/11/20 History conjugated estrogens [Premarin] 1 applic VAGINAL WK 04/11/20 04/11/20 History ibandronate 150 mg PO MONTHLY 04/11/20 04/11/20 History lifitegrast [Xiidra] 1 drp OPB QAM 04/11/20 04/11/20 History Patient History Medical History ASCVD (arteriosclerotic cardiovascular disease) Cystocele History of nephrolithiasis Osteoporosis Vaginal pessary in situ Surgical History History of colonoscopy History of oophorectomy Family History Mother Alive and well Father , 76 Stroke Social History Smoking Status: Former smoker Smoking End Date: 1987; Second Hand Exposure: No; Do You Dip or Chew Tobacco: No (quit 32 years ago); Tobacco Cessation Education Requested by Patient: No Hx Alcohol Use: Yes Alcohol type: wine Hx Substance Use: No Preferred Language: Citizen Of [place] Communication Ability: Effective Beeswax Bleacher Required: No Beliefs That Will Affect Care: None marital status: Current Living Situation: Parent Current Living Situation Comment: takes care of 99 year old mother Other Information That Helps Us Care for You: No Feels Safe at Home: Yes Safety Concerns: Feels Safe At This Time Assistive Devices: None Review of Systems Review of Systems: All systems reviewed & are unremarkable except as noted in HPI & below Physical Exam Physical Exam: Patient is a 70-year-old white female who appears her stated age. Alert and oriented x3. She is in no acute distress, pleasant and cooperative. On examination of the left lower extremity, leg lengths appear equal. She has difficulty doing straight leg raise compared to the right. Gentle range of motion of the left hip causes her only minimal discomfort with flexion extension, internal and external rotation, abduction. She states that she has most of her pain whenever she is weightbearing. She has good range of motion of the left knee and ankle without discomfort in either. Right lower extremity is unaffected and she has good range of motion of the hip, knee, and ankle. Upper extremities are unaffected and are nontender at the shoulders, elbows, and wrists. Range of motion is within normal limits. She denies any pain at the cervical, thoracic, and lumbar regions. Distal pulses are equal bilaterally of the upper and lower extremities. There is no gross motor or sensory loss seen at this time. Results & Data ([facility]) Vital Signs (Past 12 Hours) Vital Signs Temp Pulse Pulse Resp BP BP Pulse Ox 04/11/20 16:25 37.4 C 74 18 102/56 L 100 04/11/20 15:30 85 20 127/67 99 04/11/20 15:15 69 18 109/61 100 04/11/20 15:13 36.9 C 84 17 109/61 98 04/11/20 15:00 69 24 127/56 L 97 04/11/20 14:31 71 14 92/73 L 100 04/11/20 14:08 85 16 103/54 L 99 04/11/20 11:44 36.9 C 67 20 128/74 98 Diagnostic Findings Patient: DAINA VIDALES Date: 04/11/20MR#: [id number]: [id number] [facility] ID:[id number]: Date: 1950[facility] Zip: [place], [place] [address]Nji: 70Location: EDSex: FRoom/Bed:Att Phy:Diagnosis: FELL HURT LEFT HIPPri Phy: Saman Guptavor LakeNorma, DOService Date: 04/11/20Fam Phy:Interpreting Phy: Mika Baird Phy: Ordering Phy: Lane Mccallum M.D. cc: ~ CT hip LT wo con HISTORY: 70 years-old Female fall, pain, poss fx acute left hip pain status post fall COMPARISON: Pelvis and left hip radiographs of same day, CT abdomen and pelvis 11/03/2012. TECHNIQUE: Multiple axial CT images of the left hip were obtained without the use of IV contrast. A dose lowering technique was used consistent with the principals of ALARA. FINDINGS: There is a subtle acute nondisplaced subcapital fracture of the left femur which is best seen on the coronal images (for example image 36 series 300 with mild adjacent subcortical sclerosis/impaction. This is also seen on image 73 of series 3. Mild left hip osteoarthritis. No acute displaced fracture or avascular necrosis. The left pelvic ring appears intact. Small left hip joint effusion. Pessary noted within the vagina. IMPRESSION: Confirmation of the acute nondisplaced subcapital fracture of the left femur.
[2020-04-11 17:22] LABS: Appearance Urine Clear (Clear); Bacteria Urine Automated 1+ (Negative); Bilirubin Urine Negative (Negative); Blood Urine 3+ (Negative); Color Urine Yellow; Glucose Urine UA Negative (Negative); Ketones Urine Negative (Negative); Leukocyte Esterase Urine 3+ (Negative); Nitrite Urine Positive (Negative); Protein Urine Negative (Negative); RBC Urine Automated >30 /hpf (0-4); Specific Gravity Urine 1.011 (1.000-1.030); Urobilinogen Urine Negative (Negative); WBC Urine Automated >30 /hpf (0-5); pH Urine 8.5 (4.5-7.5)
[2020-04-11] MEDS ORDERED: cefTRIAXone SODIUM 1,000 MG in DEXTROSE 5% 50 ML IV STA (18:29)
[2020-04-11] MEDS: DOCUSATE SODIUM/SENNA 50/8.6MG TAB PO SCH (21:14)
[2020-04-11] MEDS ORDERED: HEPARIN SOD 5,000 UNIT/0.5 ML VIAL SQ ONE (22:00)
[2020-04-11] MEDS: SODIUM CHLORIDE 0.9% 1000ML 1,000 ML IV SCH (23:37)
[2020-04-12] MEDS: XIIDRA: ORDER AWAITING ACTION SCH ×4 (00:30→23:32)
[2020-04-12] MEDS ORDERED: ceFAZolin 2000MG 2,000 MG/15 ML SYR IV SCH ×2 (06:00→22:00)
[2020-04-12 07:01] LABS: Hematocrit (blood only) 35.6 % (37-47); Hemoglobin 11.7 g/dL (12.0-16.0); Mean Corpuscular Hemoglobin 31.2 pg (25-34); Mean Corpuscular Hgb Conc 32.9 g/dL (32-36); Mean Corpuscular Volume 94.9 fL (80-100); Mean Platelet Volume 10.9 fL (7.4-10.4); Platelet Count 154 K/uL (130-400); RDW Coefficient of Variation 13.8 % (11.5-14.5); RDW Standard Deviation 48.3 fL (36.4-46.3); Red Blood Count 3.75 M/uL (4.2-5.4); White Blood Count 4.54 K/uL (4.8-10.8)
[2020-04-12 07:32] LABS: BUN Creatinine Ratio 13.1 (10-20); Calcium 7.8 mg/dl (8.5-10.1); Creatinine Clr Calc Pharmacy 65.6 ml/min; Est GFR (African American) 83.4
[2020-04-12] MEDS: CHOLECALCIFEROL 400 UNITS 10 MCG TAB PO SCH (08:16)
[2020-04-12] MEDS: SODIUM CHLORIDE 0.9% 1000ML 1,000 ML IV SCH (11:23)
--- NOTE | 2020-04-12 12:16 | Hospitalist Progress Note ---
Date of Service April 12, 2020 Assessment & Plan (1) Subcapital fracture of left femur: (2) Osteoporosis: Patient is a 70 yr female with H/O osteoporosis, kidney stones, cystocele who presents to ED after sustaining mechanical fall x1 day ago. Subcapital fracture of left femur Secondary to Fall CT Left femur showed acute nondisplaced subcapital fracture of the left femur Fall precautions Appreciate Orthopedics Input Pain Control Bowel regimen to prevent constipation Monitor for postop anemia Activity as per Ortho PT OT as able (3) Osteoporotic fracture of left hip: Continue vit d supplement and Boniva (4) UTI (urinary tract infection): Abnormal UA Possible UTI H/O cystocele Urine Cx:Pending Continue ceftriaxone empirically DVT Px: SCDs for now given planned for surgery Code Status Full Code Admission and Anticipated Discharge Date Admission Date: April 11, 2020 Subjective Patient is seen and examined at bedside States having left hip pain with movement Chronic dysuria unchanged Denies chest pain, shortness of breath, dizziness, nausea, abdominal pain Offers no other complaints Review of Systems Review of Systems: All systems reviewed & are unremarkable except as noted in HPI & below Physical Exam Physical Exam: Physical Exam: Vitals signs as noted above General Appearance:Thin, no apparent distress Head: normocephalic, Atraumatic Eyes: normal inspection, EOMI Neck: supple, Trachea midline Respiratory/Chest: Normal breath sounds, CTA Cardiovascular: S1, S2, No murmur Abdomen/GI:Soft, Non tender, Bowel sounds present Extremities/Musculoskelatal:normal inspection, no edema, Left Hip decreased ROM Neurologic/Psych:AAOX3, grossly no focal neurological deficits Skin: normal color, warm Results & Data Results & Data ([facility]) Vital Signs (Past 12 Hours) Vital Signs Temp Pulse Resp BP Pulse Ox 04/12/20 07:33 36.7 C 90 16 89/55 L 93 Laboratory Results Short CBC 04/12/20 Range/Units 06:43 WBC 4.54 L (4.8-10.8) K/uL Hgb 11.7 L (12.0-16.0) g/dL Hct 35.6 L (37-47) % Plt Count 154 (130-400) K/uL BMP 04/11/20 04/12/20 13:12 06:43 Sodium 141 142 Potassium 3.8 4.0 Chloride 108 H 112 H Carbon Dioxide 27 24 BUN 10 11 Creatinine 0.86 0.82 Glucose 93 90 Calcium 8.3 L 7.8 L Liver Function 04/11/20 Range/Units 13:12 Total Bilirubin 0.6 (0.2-1) mg/dl AST 19 (15-37) U/L ALT 22 (12-78) U/L Alkaline Phosphatase 57 (45-117) U/L Albumin 3.5 (3.4-5.0) gm/dl Urine 04/11/20 Range/Units 16:40 Urine Color Yellow Urine Appearance Clear (Clear) Urine pH 8.5 H (4.5-7.5) Ur Specific [place] 1.011 (1.000-1.030) Urine Protein Negative (Negative) Urine Glucose (UA) Negative (Negative)
[2020-04-12] MEDS ORDERED: BUPIVACAINE/EPINEPHRINE 0.5% MPF 1:200,000 30 ML VIAL ONE (12:56)
[2020-04-12] MEDS ORDERED: BUPIVACAINE 0.5 % 5 MG/1 ML PF 10ML VIAL ONE (13:01)
[2020-04-12] MEDS ORDERED: fentaNYL citrate 100 MCG/2 ML VIAL ONE (13:04)
[2020-04-12] MEDS ORDERED: LIDOCAINE HCL 2% 2 ML VIAL/AMP(20MG/ML) INFIL ONE (13:04)
[2020-04-12] MEDS ORDERED: PHENYLEPHRINE 100MCG/ML 5ML SYR ONE (13:04)
[2020-04-12] MEDS ORDERED: ePHEDrine sulfate 50 MG/ML SYR ONE (13:04)
[2020-04-12] MEDS ORDERED: PROPOFOL IV EMULSION 10 MG/ML 20 ML VIAL IV ONE ×2 (13:04→14:28)
[2020-04-12] MEDS ORDERED: MIDAZOLAM HCL 1 MG/ML 2ML VIAL ONE (13:04)
[2020-04-12] MEDS ORDERED: PHENYLEPHRINE 100MCG/ML 5ML SYR IV PRN (13:24)
[2020-04-12] MEDS ORDERED: MEPERIDINE HCL 25 MG/ML CARP/VIAL IV PRN (13:24)
[2020-04-12] MEDS ORDERED: fentaNYL citrate 100 MCG/2 ML VIAL IV PRN (13:24)
[2020-04-12] MEDS ORDERED: HYDROmorphone INJ 1 MG/ML SYRINGE IV PRN (13:24)
[2020-04-12] MEDS ORDERED: LABETALOL HCL IV 5 MG/ML 20ML IV PRN (13:24)
[2020-04-12] MEDS ORDERED: ePHEDrine sulfate 50 MG/ML AMP IV PRN (13:24)
[2020-04-12] MEDS ORDERED: ONDANSETRON INJ 2 MG/ML 2 ML VIAL IV PRN (13:24)
[2020-04-12] MEDS ORDERED: ATROPINE SULFATE 0.1 MG/ML 10ML SYR IV PRN (13:24)
--- NOTE | 2020-04-12 13:32 | History & Physical Bridge Note ---
Date of Service April 12, 2020 History & Physical Bridge Note I have examined the patient, reviewed the History & Physical and in the interval since the performance of the History & Physical I have noted the following changes of clinical significance: no changes noted
--- NOTE | 2020-04-12 15:05 | Post Operative Brief Note ---
Immediate Post Op Note v1 Date of Surgery April 12, 2020 Pre & Post Diagnosis Operation Date: 04/12/20 07:00 Pre-Op Diagnosis: LEFT SUBCAPITAL FEMUR FRACTURE, NONDISPLACED Post-Op Diagnosis: LEFT SUBCAPITAL FEMUR FRACTURE, NONDISPLACED I identified the patient and participated in the time-out.: Yes Procedure Operation Date: 04/12/20 07:00 Actual Procedures p Left Hip 7.3 Cannulated Screw Open Reduction Internal Fixation(Left) - Octavio Herzog DO Surgeon Octavio Herzog DO National Recruiter none Estimated Blood Loss 30 Findings Consistent with Post-Op Diagnosis Fluids See anesthesia report Specimens none Anesthesia Type Spinal MAC Complications none Disposition Disposition: Recovery Room Overlapping Procedure I was present for: the critical portions of procedure. I was immediately available: during the entire case. Back up surgeon: was not required during procedure.
--- NOTE | 2020-04-12 15:07 | Fluoroscopy Report ---
FL hip LT 2-3V CLINICAL HISTORY: LT ORIF W/CANNULATED SCREWS. Left hip internal fixation. COMPARISON STUDY: Left hip 04/11/2020. FLUOROSCOPY TIME: 1 minute and 34 seconds. FINDINGS: 2 fluoroscopic spot images of the left hip demonstrate 3 cannulated screws transfixing the left femoral neck fracture. The hardware is intact. Alignment is near-anatomic. IMPRESSION: Fluoroscopy provided for internal fixation of a left femoral neck fracture. ACT 112: Negative or not required by law. Electronically signed by: Clif Oliveros M.D. 04/12/2020 3:06 PM
--- NOTE | 2020-04-12 15:08 | Operative Report ---
Post Operative Report Pre & Post Diagnosis Operation Date: 04/12/20 07:00 Pre-Op Diagnosis: LEFT SUBCAPITAL FEMUR FRACTURE, NONDISPLACED Post-Op Diagnosis: LEFT SUBCAPITAL FEMUR FRACTURE, NONDISPLACED I identified the patient and participated in the time-out.: Yes Procedure Operation Date: 04/12/20 07:00 Actual Procedures p Left Hip 7.3 Cannulated Screw Open Reduction Internal Fixation(Left) - Octavio Herzog DO Surgeon Octavio Herzog DO Cotton Buyer none Estimated Blood Loss 30 Findings Consistent with Post-Op Diagnosis Specimens none Anesthesia Type Spinal MAC Complications none Disposition Disposition: Recovery Room Description of Procedure The patient was identified, brought to the operating room, and placed in supine position on the table. After appropriate spinal anesthesia, the patient was positioned on a fracture table. Imaging was obtained utilizing C-arm fluoroscopy of the left hip to assess hip position and version. No reduction was needed. The left hip was then sterilely prepped and draped in the usual fashion for the surgery. A timeout was performed with site shweta confirmation and preoperative antibiotics given. Once again under C-arm fluoroscopy a guide pin was inserted percutaneously and positioned in the inferior neck and femoral head while assessed in both the AP and lateral planes. When satisfactory position was confirmed a small direct lateral incision of the right hip around the guide pin was made. Dissection was carried down to the femur through the IT band and the vastus lateralis was elevated off the bone. Adequate hemostasis was achieved with electrocautery. Next under direct visualization with C-arm fluoroscopy we then used the pin guide to place two additional pins in the anterior superior and posterior superior positions. Position was confirmed both with C-arm fluroscopy in the AP and lateral postion. Each guide pin was measured for appropriate screw length and overdrilled using the cannulated drill bit while utilizing C-arm fluoroscopy to confirm no pin migration had occurred. Three 7.3 16 thread cannulated screws measure 100, 95 and 95 mm were then placed under C-arm fluoroscopy into the femoral head with excellent fixation. The guide pins were removed at this time and final images were obtained utilizing C- arm fluoroscopy. Once this was done and the fixation was solid, the wound was irrigated with copious amounts of sterile saline solution. The incision was injected with 30cc .5% Marcaine with epi. We then closed in layers using 1 Vicryl, 2-0 Vicryl, and tito for the skin. Sterile xeroform, 4x4, tegaderm dressing was applied. The patient was awakened in the OR , tolerated the procedure well and was taken to the PACU in stable condition. I attest to the content of the Intraoperative Record and any orders documented therein. Any exceptions are noted below.
--- NOTE | 2020-04-12 15:49 | XRay Report ---
XR hip LT min 2V CLINICAL HISTORY: Post-Operative implant position COMPARISON: 04/11/2020 DISCUSSION: The subcapital left femoral fracture has been internally fixated with 3 cannulated screws . There are skin tito within the lateral thigh. There is gas within the proximal lateral thigh con sistent with recent surgery. IMPRESSION: 1. Interval internal fixation of a nondisplaced subcapital left hip fracture with 3 cannulated screws ACT 112: Negative or not required by law. Electronically signed by: Gavino Quinn M.D. 04/12/2020 3:48 PM
[2020-04-12] MEDS ORDERED: NALOXONE HCL 0.4 MG/1 ML VIAL/CARP IV PRN (16:09)
--- NOTE | 2020-04-12 16:37 | Anesthesiology Progress Note ---
Date of Service April 12, 2020 Anesthesia Post Procedure Vital Signs Vital Signs: Temp Pulse Pulse Resp BP Pulse Ox 04/12/20 15:55 36.3 C L 66 16 104/49 L 100 04/12/20 15:50 65 17 104/54 L 100 04/12/20 15:40 68 18 112/51 L 100 04/12/20 15:30 69 18 108/52 L 100 04/12/20 15:20 71 19 109/49 L 100 04/12/20 15:10 71 18 106/52 L 100 04/12/20 15:00 36.2 C L 82 16 106/50 L 96 04/12/20 12:58 37.3 C 88 16 109/57 L 95 04/12/20 07:33 36.7 C 90 16 89/55 L 93 04/11/20 23:34 37.1 C 71 16 97/56 L 95 Transfer of Care Handoff Completed per policy Notes Mental Status: alert / awake / arousable Patient Amnestic to Procedure: Yes Nausea / Vomiting: adequately controlled Pain: adequately controlled Airway Patency, RR, SpO2: stable & adequate BP & HR: stable & adequate Hydration State: stable & adequate Neuraxial Anesthesia: was administered and sensory block is resolving Anesthetic Complications: no major complications apparent and Pt Satisfied with anesthetic care
[2020-04-12] MEDS: cefTRIAXone SODIUM 1,000 MG in DEXTROSE 5% 50 ML IV SCH (18:16)
--- NOTE | 2020-04-12 19:01 | Orthopedic Progress Note ---
Date of Service April 12, 2020 Assessment & Plan (1) Subcapital fracture of left femur: s/p ORIF left hip, cannulated screws -On Rocephin -DVT ppx - SCDs, TEDs, Xarelto -NWB LLE -PT/OT -PO XR demonstrates well aligned well fixed orthpedic hardware, anatomic alignement of fracture -am labs Admission and Anticipated Discharge Date Admission Date: April 11, 2020 Subjective Post Operative Progress Note Patient seen sitting up in bed, comfortable, denies complaints, pain well controlled, no acute issues. Still feeling effects of spinal anesthesia Review of Systems Review of Systems: All systems reviewed & are unremarkable except as noted in HPI & below Constitutional: as per Subjective / HPI Physical Exam Physical Exam: LLE PE limited secondary to spinal, +2 DP pulse, compartments soft NT, dressing CDI Constitutional: WD/WN, vitals as above Results & Data ([place]) Vital Signs (Past 12 Hours) Vital Signs Temp Pulse Pulse Resp BP Pulse Ox 04/12/20 18:20 37.0 C 73 16 111/54 L 93 04/12/20 17:05 71 16 107/57 L 97 04/12/20 16:35 74 16 97/55 L 98 04/12/20 15:55 36.3 C L 66 16 104/49 L 100 04/12/20 15:50 65 17 104/54 L 100 04/12/20 15:40 68 18 112/51 L 100 04/12/20 15:30 69 18 108/52 L 100 04/12/20 15:20 71 19 109/49 L 100 04/12/20 15:10 71 18 106/52 L 100 04/12/20 15:00 36.2 C L 82 16 106/50 L 96 04/12/20 12:58 37.3 C 88 16 109/57 L 95 04/12/20 07:33 36.7 C 90 16 89/55 L 93
[2020-04-12] MEDS: DOCUSATE SODIUM/SENNA 50/8.6MG TAB PO SCH (21:50)
[2020-04-13] MEDS: HYDROCODONE/ACETAMOPHEN 5/325MG TAB PO PRN ×2 (05:57→23:04)
[2020-04-13 06:25] LABS: Basophils # (auto) 0.01 K/uL (0-0.2); Basophils % (auto) 0.2 %; Eosinophils # (auto) 0.15 K/uL (0-0.5); Eosinophils % (auto) 3.5 %; Hematocrit (blood only) 36.4 % (37-47); Hemoglobin 11.8 g/dL (12.0-16.0); Immature Granulocytes # (auto) 0.01 K/uL (0.00-0.02); Immature Granulocytes % (auto) 0.2 %; Lymphocytes # (auto) 0.81 K/uL (1.2-3.4); Lymphocytes % (auto) 19.1 %; Mean Corpuscular Hgb Conc 32.4 g/dL (32-36); Mean Corpuscular Volume 95.5 fL (80-100); Mean Platelet Volume 11.2 fL (7.4-10.4); Monocytes # (auto) 0.45 K/uL (0.11-0.59); Monocytes % (auto) 10.6 %; Neutrophils % (auto) 66.4 %; Platelet Count 154 K/uL (130-400); RDW Coefficient of Variation 13.8 % (11.5-14.5); RDW Standard Deviation 48.4 fL (36.4-46.3); Red Blood Count 3.81 M/uL (4.2-5.4); White Blood Count 4.23 K/uL (4.8-10.8)
[2020-04-13 07:00] LABS: BUN Creatinine Ratio 15.3 (10-20); Calcium 7.8 mg/dl (8.5-10.1); Creatinine Clr Calc Pharmacy 80.2 ml/min; Est GFR (African American) 102.5; Est GFR (Non-African American) 88.4; Magnesium 2.2 mg/dl (1.8-2.4)
[2020-04-13] MEDS: XIIDRA: ORDER AWAITING ACTION SCH ×2 (09:20→16:42)
[2020-04-13] MEDS: CHOLECALCIFEROL 400 UNITS 10 MCG TAB PO SCH (09:21)
[2020-04-13] MEDS: RIVAROXABAN 10 MG TABLET PO SCH (09:21)
--- NOTE | 2020-04-13 10:08 | Orthopedic Progress Note ---
Date of Service April 13, 2020 Assessment & Plan (1) Subcapital fracture of left femur: s/p ORIF left hip, cannulated screws POD#1 -On Rocephin -DVT ppx - SCDs, TEDs, Xarelto -NWB LLE -PT/OT -PO XR demonstrates well aligned well fixed orthpedic hardware, anatomic alignement of fracture -am labs - as above, hgb 11.8 Admission and Anticipated Discharge Date Admission Date: April 11, 2020 Subjective Post Operative Progress Note Patient seen sitting up in bed, comfortable, denies complaints, pain well controlled, no acute issues. Denies F/C/N/V/SOB/CP. Review of Systems Review of Systems: All systems reviewed & are unremarkable except as noted in HPI & below Constitutional: as per Subjective / HPI Physical Exam Physical Exam: LLE NVSI +EHL/FHL/TA/GS SILT grossly, +2 DP pulse, compartments soft NT, dressing cdi. Constitutional: WD/WN, vitals as above Results & Data ([facility]) Vital Signs (Past 12 Hours) Vital Signs Temp Pulse Pulse Resp BP Pulse Ox 04/13/20 07:31 37.0 C 91 H 18 106/63 94 04/13/20 03:31 37.0 C 70 14 95/58 L 97 04/12/20 23:47 36.7 C 83 18 100/64 94 Laboratory Results 04/13/20 04/13/20 Range/Units 05:40 05:40 WBC 4.23 L (4.8-10.8) K/uL RBC 3.81 L (4.2-5.4) M/uL Hgb 11.8 L (12.0-16.0) g/dL Hct 36.4 L (37-47) % MCV 95.5 (80-100) fL MCH 31.0 (25-34) pg MCHC 32.4 (32-36) g/dL RDW Std Deviation 48.4 H (36.4-46.3) fL RDW Coeff of Oksana 13.8 (11.5-14.5) % Plt Count 154 (130-400) K/uL MPV 11.2 H (7.4-10.4) fL Immature Gran % (Auto) 0.2 % Neut % (Auto) 66.4 % Lymph % (Auto) 19.1 % [place] % (Auto) 10.6 % Eos % (Auto) 3.5 % Baso % (Auto) 0.2 % Neut # (Auto) 2.80 (1.4-6.5) K/uL Lymph # (Auto) 0.81 L (1.2-3.4) K/uL [place] # (Auto) 0.45 (0.11-0.59) K/uL Eos # (Auto) 0.15 (0-0.5) K/uL Baso # (Auto) 0.01 (0-0.2) K/uL Immature Gran # (Auto) 0.01 (0.00-0.02) K/uL Sodium 140 (136-145) mmol/L Potassium 4.0 (3.5-5.1) mmol/L Chloride 108 H (98-107) mmol/L Carbon Dioxide 28 (21-32) mmol/L Anion Gap 4.0 (3-11) BUN 10 (7-18) mg/dl Creatinine 0.67 (0.6-1.2) mg/dl Est Cr Clr Drug Dosing 80.2 ml/min Est GFR ( Amer) 102.5 Est GFR (Non-Af Amer) 88.4 BUN/Creatinine Ratio 15.3 (10-20) Glucose 88 (70-99) mg/dl Calcium 7.8 L (8.5-10.1) mg/dl Magnesium 2.2 (1.8-2.4) mg/dl
--- NOTE | 2020-04-13 17:00 | Hospitalist Progress Note ---
Date of Service April 13, 2020 Assessment & Plan (1) Subcapital fracture of left femur: (2) Osteoporosis: Patient is a 70 yr female with H/O osteoporosis, kidney stones, cystocele who presents to ED after sustaining mechanical fall x1 day ago. Subcapital fracture of left femur Secondary to Fall CT Left femur showed acute nondisplaced subcapital fracture of the left femur S/P Left Hip ORIF POD#1 Fall precautions Appreciate Orthopedics Input Pain Control Bowel regimen to prevent constipation Monitor for postop anemia Nonweightbearing left lower extremity Started on Xarelto for DVT prophylaxis Needs follow-up with Ortho upon discharge (3) Osteoporotic fracture of left hip: Continue vit d supplement and Boniva (4) UTI (urinary tract infection): UTI H/O cystocele Urine Cx: Gram-negative bacilli Continue ceftriaxone empirically DVT Px: Xarelto Code Status Full Code Admission and Anticipated Discharge Date Admission Date: April 11, 2020 Subjective Patient is seen and examined at bedside Left hip pain at surgical site is controlled Denies chest pain, dyspnea, dizziness, nausea, abdominal pain Urine culture growing gram-negative bacilli Offers no other complaints Review of Systems Review of Systems: All systems reviewed & are unremarkable except as noted in HPI & below Physical Exam Physical Exam: Physical Exam: Vitals signs as noted above General Appearance:Thin, no apparent distress Head: normocephalic, Atraumatic Eyes: normal inspection, EOMI Neck: supple, Trachea midline Respiratory/Chest: Normal breath sounds, CTA Cardiovascular: S1, S2, No murmur Abdomen/GI:Soft, Non tender, Bowel sounds present Extremities/Musculoskelatal:normal inspection, no edema, Left Hip surgical site in dressing Neurologic/Psych:AAOX3, grossly no focal neurological deficits Skin: normal color, warm Results & Data Results & Data ([facility]) Vital Signs (Past 12 Hours) Vital Signs Temp Pulse Resp BP Pulse Ox 04/13/20 14:46 36.9 C 78 16 88/56 L 93 04/13/20 07:31 37.0 C 91 H 18 106/63 94 Laboratory Results Short CBC 04/13/20 Range/Units 05:40 WBC 4.23 L (4.8-10.8) K/uL Hgb 11.8 L (12.0-16.0) g/dL Hct 36.4 L (37-47) % Plt Count 154 (130-400) K/uL BMP 04/13/20 05:40 Sodium 140 Potassium 4.0 Chloride 108 H Carbon Dioxide 28 BUN 10 Creatinine 0.67 Glucose 88 Calcium 7.8 L
[2020-04-13] MEDS: cefTRIAXone SODIUM 1,000 MG in DEXTROSE 5% 50 ML IV SCH (18:29)
[2020-04-13] MEDS: DOCUSATE SODIUM/SENNA 50/8.6MG TAB PO SCH (21:24)
[2020-04-14] MEDS: XIIDRA: ORDER AWAITING ACTION SCH ×3 (00:15→16:08)
[2020-04-14 06:52] LABS: Basophils # (auto) 0.01 K/uL (0-0.2); Basophils % (auto) 0.2 %; Eosinophils # (auto) 0.17 K/uL (0-0.5); Eosinophils % (auto) 4.2 %; Hemoglobin 12.2 g/dL (12.0-16.0); Immature Granulocytes # (auto) 0.01 K/uL (0.00-0.02); Immature Granulocytes % (auto) 0.2 %; Lymphocytes # (auto) 0.96 K/uL (1.2-3.4); Lymphocytes % (auto) 23.5 %; Mean Corpuscular Volume 93.9 fL (80-100); Mean Platelet Volume 11.1 fL (7.4-10.4); Monocytes % (auto) 9.8 %; Neutrophils # (auto) 2.54 K/uL (1.4-6.5); Neutrophils % (auto) 62.1 %; Platelet Count 160 K/uL (130-400); RDW Coefficient of Variation 13.4 % (11.5-14.5); RDW Standard Deviation 46.8 fL (36.4-46.3); Red Blood Count 3.94 M/uL (4.2-5.4); White Blood Count 4.09 K/uL (4.8-10.8)
[2020-04-14 07:26] LABS: BUN Creatinine Ratio 14.9 (10-20); Calcium 8.2 mg/dl (8.5-10.1); Creatinine Clr Calc Pharmacy 70.7 ml/min; Est GFR (African American) 91.5; Est GFR (Non-African American) 78.9; Potassium 4.6 mmol/L (3.5-5.1)
[2020-04-14] MEDS: RIVAROXABAN 10 MG TABLET PO SCH (09:04)
[2020-04-14] MEDS: CHOLECALCIFEROL 400 UNITS 10 MCG TAB PO SCH (09:04)
--- NOTE | 2020-04-14 11:29 | Orthopedic Progress Note ---
Date of Service April 14, 2020 Assessment & Plan (1) Subcapital fracture of left femur: s/p ORIF left hip, cannulated screws POD#2 -On Rocephin -DVT ppx - SCDs, TEDs, Xarelto -NWB LLE -PT/OT -am labs - as noted I have spoken to Dr. Penny this morning. Plan for patient to be discharged home today. Admission and Anticipated Discharge Date Admission Date: April 11, 2020 Subjective Postop day 2 Patient sitting up in bed. Awake and alert. No complaints this morning. Pain is controlled. States she is progressing with her physical therapy. Physical Exam Physical Exam: Incision is clean, dry, and intact. Mild swelling noted. No erythema. Calves are soft and nontender. Neurovascular is intact. Toes are mobile. Results & Data ([facility]) Vital Signs (Past 12 Hours) Vital Signs Temp Pulse Resp BP Pulse Ox 04/14/20 07:39 36.7 C 71 16 94/57 L 98 Laboratory Results Laboratory Results WBC 4.09 K/uL (4.8-10.8) L 04/14/20 06:24 RBC 3.94 M/uL (4.2-5.4) L 04/14/20 06:24 Hgb 12.2 g/dL (12.0-16.0) 04/14/20 06:24 Hct 37.0 % (37-47) 04/14/20 06:24 MCV 93.9 fL (80-100) 04/14/20 06:24 MCH 31.0 pg (25-34) 04/14/20 06:24 MCHC 33.0 g/dL (32-36) 04/14/20 06:24 RDW Std Deviation 46.8 fL (36.4-46.3) H 04/14/20 06:24 RDW Coeff of Oksana 13.4 % (11.5-14.5) 04/14/20 06:24 Plt Count 160 K/uL (130-400) 04/14/20 06:24 MPV 11.1 fL (7.4-10.4) H 04/14/20 06:24 Immature Gran % (Auto) 0.2 % 04/14/20 06:24 Neut % (Auto) 62.1 % 04/14/20 06:24 Lymph % (Auto) 23.5 % 04/14/20 06:24 Morrison % (Auto) 9.8 % 04/14/20 06:24 Eos % (Auto) 4.2 % 04/14/20 06:24 Baso % (Auto) 0.2 % 04/14/20 06:24 Neut # (Auto) 2.54 K/uL (1.4-6.5) 04/14/20 06:24 Lymph # (Auto) 0.96 K/uL (1.2-3.4) L 04/14/20 06:24 Morrison # (Auto) 0.40 K/uL (0.11-0.59) 04/14/20 06:24 Eos # (Auto) 0.17 K/uL (0-0.5) 04/14/20 06:24 Baso # (Auto) 0.01 K/uL (0-0.2) 04/14/20 06:24 Immature Gran # (Auto) 0.01 K/uL (0.00-0.02) 04/14/20 06:24 PT 10.0 Seconds (9.0-12.0) 04/11/20 13:12 INR 1.0 (0.9-1.1) 04/11/20 13:12 APTT 25.4 Seconds (21.0-31.0) 04/11/20 13:12 PTT Ratio 1.0 04/11/20 13:12 Sodium 143 mmol/L (136-145) 04/14/20 06:24 Potassium 4.6 mmol/L (3.5-5.1) 04/14/20 06:24 Chloride 110 mmol/L (98-107) H 04/14/20 06:24 Carbon Dioxide 29 mmol/L (21-32) 04/14/20 06:24 Anion Gap 4.0 (3-11) 04/14/20 06:24 BUN 11 mg/dl (7-18) 04/14/20 06:24 Creatinine 0.76 mg/dl (0.6-1.2) 04/14/20 06:24 Est Cr Clr Drug Dosing 70.7 ml/min 04/14/20 06:24 Est GFR ( Amer) 91.5 04/14/20 06:24 Est GFR (Non-Af Amer) 78.9 04/14/20 06:24 BUN/Creatinine Ratio 14.9 (10-20) 04/14/20 06:24 Glucose 101 mg/dl (70-99) H 04/14/20 06:24 Calcium 8.2 mg/dl (8.5-10.1) L 04/14/20 06:24 Magnesium 2.2 mg/dl (1.8-2.4) 04/13/20 05:40 Total Bilirubin 0.6 mg/dl (0.2-1) 04/11/20 13:12 AST 19 U/L (15-37) 04/11/20 13:12 ALT 22 U/L (12-78) 04/11/20 13:12 Alkaline Phosphatase 57 U/L (45-117) 04/11/20 13:12 Total Protein 6.5 gm/dl (6.4-8.2) 04/11/20 13:12 Albumin 3.5 gm/dl (3.4-5.0) 04/11/20 13:12 Globulin 3.0 gm/dl (2.5-4.0) 04/11/20 13:12 Albumin/Globulin Ratio 1.2 (0.9-2) 04/11/20 13:12 25-OH Vitamin D Total 30.7 ng/ml (30-100) 04/12/20 06:43 Urine Color Yellow 04/11/20 16:40 Urine Appearance Clear (Clear) 04/11/20 16:40 Urine pH 8.5 (4.5-7.5) H 04/11/20 16:40 Ur Specific Perryman 1.011 (1.000-1.030) 04/11/20 16:40 Urine Protein Negative (Negative) 04/11/20 16:40 Urine Glucose (UA) Negative (Negative) 04/11/20 16:40 Urine Ketones Negative (Negative) 04/11/20 16:40 Urine Blood 3+ (Negative) H 04/11/20 16:40 Urine Nitrite Positive (Negative) A 04/11/20 16:40 Urine Bilirubin Negative (Negative) 04/11/20 16:40 Urine Urobilinogen Negative (Negative) 04/11/20 16:40 Ur Leukocyte Esterase 3+ (Negative) H 04/11/20 16:40 Urine WBC (Auto) >30 /hpf (0-5) H 04/11/20 16:40 Urine RBC (Auto) >30 /hpf (0-4) H 04/11/20 16:40 U Hyaline Cast (Auto) 1-5 /lpf (0-5) 04/11/20 16:40 U Epithel Cells (Auto) 5-10 /lpf (0-5) H 04/11/20 16:40 Urine Bacteria (Auto) 1+ (Negative) H 04/11/20 16:40 Nasal Screen MRSA (PCR) Negative (Negative) 04/11/20 16:40 COVID-19 Eval Order Covid19 IDNow [facility] 04/11/20 14:10 SARS-CoV-2, RNA, NAAT NEGATIVE (NEGATIVE) 04/11/20 14:10 Blood Type O Positive 04/11/20 13:12 Antibody Screen NEGATIVE 04/11/20 13:12
[2020-04-14] MEDS ORDERED: cefTRIAXone SODIUM 1,000 MG in DEXTROSE 5% 50 ML IV SCH (12:00)
--- NOTE | 2020-04-14 12:02 | Hospitalist Progress Note ---
Date of Service April 14, 2020 Assessment & Plan (1) Subcapital fracture of left femur: (2) Osteoporosis: Patient is a 70 yr female with H/O osteoporosis, kidney stones, cystocele who presents to ED after sustaining mechanical fall x1 day ago. Subcapital fracture of left femur Secondary to Fall CT Left femur showed acute nondisplaced subcapital fracture of the left femur S/P Left Hip ORIF POD#2 Fall precautions Appreciate Orthopedics Input Pain Control Bowel regimen to prevent constipation Monitor for postop anemia Nonweightbearing left lower extremity Continue Xarelto for DVT prophylaxis Needs follow-up with Ortho upon discharge (3) Osteoporotic fracture of left hip: Continue vit d supplement and Boniva (4) UTI (urinary tract infection): UTI H/O cystocele Urine Cx: Citrobacter Continue ceftriaxone Day #3 Chronic Hypotension As per patient Currently asymptomatic Monitor DVT Px: Xarelto Code Status Full Code Admission and Anticipated Discharge Date Admission Date: April 11, 2020 Subjective Patient is seen and examined at bedside Left hip pain is controlled No new complaints Denies chest pain, dyspnea, dizziness, nausea, abdominal pain Urine culture growing Citrobacter Discussed with Ortho today Review of Systems Review of Systems: All systems reviewed & are unremarkable except as noted in HPI & below Physical Exam Physical Exam: Physical Exam: Vitals signs as noted above General Appearance:Thin, no apparent distress Head: normocephalic, Atraumatic Eyes: normal inspection, EOMI Neck: supple, Trachea midline Respiratory/Chest: Normal breath sounds, CTA Cardiovascular: S1, S2, No murmur Abdomen/GI:Soft, Non tender, Bowel sounds present Extremities/Musculoskelatal:normal inspection, no edema, Left Hip surgical site in dressing Neurologic/Psych:AAOX3, grossly no focal neurological deficits Skin: normal color, warm Results & Data Results & Data ([facility]) Vital Signs (Past 12 Hours) Vital Signs Temp Pulse Resp BP Pulse Ox 04/14/20 07:39 36.7 C 71 16 94/57 L 98 Laboratory Results Short CBC 04/14/20 Range/Units 06:24 WBC 4.09 L (4.8-10.8) K/uL Hgb 12.2 (12.0-16.0) g/dL Hct 37.0 (37-47) % Plt Count 160 (130-400) K/uL BMP 04/14/20 06:24 Sodium 143 Potassium 4.6 Chloride 110 H Carbon Dioxide 29 BUN 11 Creatinine 0.76 Glucose 101 H Calcium 8.2 L
--- NOTE | 2020-04-14 14:30 | Discharge Summary ---
Date of Service April 14, 2020 Admission HPI Per Admitting Provider This is a 70-year-old female who has significant past medical history of osteoporosis, history of kidney stones, cystocele who presents to ED after sustaining mechanical fall x1 day ago. Patient states, "I tripped over my own feet." She landed on her left side and has been having difficulty ambulating ever since. She has been using a cane in her mother's walker. She is very concerned as she takes care of her 99-year-old mother and wishes to return home. Unfortunately imaging in ED revealed a acute nondisplaced left subcapital femur fracture. Currently she has no pain when sitting still. However when she is up and ambulating pain goes to a 10 out of 10. She denies any loss of consciousness, syncope or hitting head prior to fall. Fall was purely mechanical. No prior history of fractures. She is very active still hiking, doing her own yard work, taking care of her 99-year-old mother and she shoveled her driveway, "3 times yesterday." She denies any recent fever, chills, sweats, lightheadedness, dizziness, chest pain, shortness of breath, cough, hemoptysis, nausea, vomiting, abdominal pain, change in bowel or urinary habits. She feels she overall eats a healthy lifestyle. Her son is cable respooler in our hospital. She wishes to return to her active lifestyle. No hx of reaction to anesthesia. In ED she remained hemodynamically stable. Her CBC and CMP generally unremark able. Chest x-ray without acute abnormality. Hip CT confirmed the acute nondisplaced left subcapital femur fracture. Admission Exam Per Admitting Provider Physical Exam Physical Exam: Constitutional: WD/WN, vitals as above, NAD, sitting up in bed, pleasant, conversing easily Head: Normocephalic, Atraumatic Eyes: PERRL, conjunctivae normal, anicteric sclerae ENMT: external ear and nose normal, oropharynx normal Neck: trachea midline, no thyromegaly normal visual inspection Respiratory: normal respiratory effort, lungs clear to auscultation, no wheeze, rales, rhonchi. Normal insp/exp effort, no accessory muscle use Cardiovascular: RRR, no murmur, no edema Vessels: no JVD or carotid bruit Chest: normal inspection of chest Abdomen: normal bowel sounds, soft, nontender, no hepatosplenomegaly Musculoskeletal: no cyanosis or clubbing, extremities motor strength 5/5 b/l upper ext, neurovascularly intact, B/L lower ext not tested given fracture Skin: no rashes, warm and dry normal turgor Neurologic: PERRL, EOMI, accommodation nl, no face palsy, no dysarthria CN's II-XI intact bilaterally and moves all extremities Psychiatric: A+Ox3, euthymic affect Lymphatic: no cervical or axillary lymphadenopathy : deferred Principal Diagnosis Subcapital fracture of left femur Urinary Tract Infection Discharge Data Allergies Allergy/AdvReac Type Severity Reaction Status Date / Time No Known Allergies Allergy Unverified 04/11/20 13:03 Consultations 04/11/20 14:08 ED Decision to Admit Stat 04/11/20 14:46 Consult Orthopedic Surgery Routine 04/11/20 16:14 Consult Anesthesiology Routine Consult Case Management - Discharge Planning Routine 04/12/20 16:09 Consult Case Management - Discharge Planning Routine Procedures Performed Operation Date: 04/12/20 07:00 Actual Procedures p Left Hip 7.3 Cannulated Screw Open Reduction Internal Fixation(Left) - Octavio Herzog, Ordered Studies 04/11/20 13:02 CT hip LT wo con Stat 04/12/20 13:00 FL fluoroscopy <1hr Routine FL hip LT 2-3V Routine CT Hip: Confirmation of the acute nondisplaced subcapital fracture of the left femur. Hospital Course (1) Subcapital fracture of left femur: (2) Osteoporosis: Patient is a 70 yr female with H/O osteoporosis, kidney stones, cystocele who presents to ED after sustaining mechanical fall x1 day ago. Subcapital fracture of left femur Secondary to Fall CT Left femur showed acute nondisplaced subcapital fracture of the left femur S/P Left Hip ORIF POD#2 Fall precautions Appreciate Orthopedics Input Pain Control Bowel regimen to prevent constipation Monitor for postop anemia Nonweightbearing left lower extremity Continue Xarelto for DVT prophylaxis Needs follow-up with Ortho upon discharge (3) Osteoporotic fracture of left hip: Continue vit d supplement and Boniva (4) UTI (urinary tract infection): UTI H/O cystocele Urine Cx: Citrobacter Continue ceftriaxone Day #3 Chronic Hypotension As per patient Currently asymptomatic Monitor DVT Px: Xarelto Code Status Full Code Total Time Total Time Spent Total Time Spent (In Minutes): 40 minutes Total Time Includes: Examination of the Patient, Discharge Planning, Medication Reconciliation, Communication With Other Providers and Other Discharge Plan Discharge Items Patient Disposition: Home - Home Health Services Reason For Visit: L SUBCAPITAL FEMUR FX, NONDISPLACED Discharge Diagnosis: Subcapital fracture of left femur Urinary Tract Infection Condition on Discharge: Good Activity: Per Instructions section Weightbearing: Left non-weightbearing Weightbearing Comment: With walker or crutches. Non-emergency contact: Primary Care Provider and Surgeon Call non-emergency contact if: your pain is not controlled, your temperature is above 101.5, your wound has increased redness and your wound has increased drainage Follow-up/Referrals: Octavio Herzog DO [Physician] - 04/26/20 3:10 pm (follow up in 10-14 days from the day of surgery) Nick Gupta DO [Primary Care Provider] - 04/18/20 11:20 am (Date & Time 04/18/2020 11:[address] [facility] ) Diet: Heart Healthy Addtl Attending Provider Instructions: Follow-up with your primary care physician Dr. Gupta on 04/18/2020 11:20 AM as scheduled Follow-up with your orthopedic surgeon in 10 days as instructed by your Surgeon Complete antibiotic course cefdinir 300 mg twice a day for 2 more days as prescribed for urinary tract infection. (Start taking on April 15, 2020) Continue taking Xarelto 10 mg daily until follow-up with your orthopedic surge on. Duration of the course to be determined by your surgeon. 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 You are to ambulate with a walker or crutches for approximately 6 weeks. B. You are NON-WEIGHTBEARING on your operative lower extremity until otherwise notified by your Surgeon C. Wear low heeled shoes with non-slip soles D. Be sure that your floors are free of things that could trip you throw rugs, electrical cords, and small objects. Avoid wet and waxed floors, especially with crutches/walker/cane. E. Try to walk several times a day with rest periods between. F. You may shower 48 hours after surgery and get the incision area wet, but DO NOT soak or submerge incision area in water. (No baths, swimming pools, hot tubs) G. You may have a large, band-aid like dressing over your incision (Aquacel). This will remain on your incision for 7 days, and then can be removed. You CAN shower with this on. If incision is leaking through the dressing, please call the office . H. Do NOT apply soap or any ointment/lotions directly over incision. I. You may use ice as needed to operative site. SPECIAL CARE INSTRUCTIONS: VERY IMPORTANT TO READ AND REVIEW A. You may be at risk for phlebitis or blood clots. a. Wear surgical stockings (REJI hose) for 2 weeks after surgery to improve circulation and reduce swelling. b. Take XARELTO 10mg daily for 4 weeks or as directed. This is your blood thinner. B. There are a few signs you need to watch for after you are home. Call [facility] at [phone] if you experience any of the following: a. If you have a temperature of 101 degrees or higher. b. Sudden increase in pain in your hip not relieved by rest or pain medication. c. Any fluid or drainage from the incision; redness of the incision. d. Shortness of breath or chest pain. C. Call your physician if: a. Temperature is greater than 101 degrees (F). b. Pain is not relieved by prescribed pain medications. c. Increase drainage or redness from incision. d. Unanswered questions or concerns. D. Pain Medication: a. You will be prescribed pain medication upon discharge that should last till your first post-operative appointment. b. If you experience nausea and/or skin rash, discontinue this medication and contact our office for an alternative medicatio n. c. Caution- narcotic pain medication can cause constipation. FOLLOW UP VISIT: Please call [facility] at [phone] to schedule a follow up appointment 10-14 days from the date of your surgery date. Pending Studies at Discharge: No Stand-Alone Forms: [employer], Smoking Cessation Medications and DC Order Prescriptions: New Xarelto 10 mg Tablet 10 mg PO DAILY Qty: 30 RF: 0 cefdinir 300 mg capsule 300 mg PO BID Qty: 4 RF: 0 Continued Premarin 0.625 mg/gram cream 1 applic vaginal WK RF: 0 ibandronate 150 mg tablet 150 mg PO MONTHLY RF: 0 Xiidra 5 % dropperette 1 drp OPB QAM RF: 0 cholecalciferol (vitamin D3) 10 mcg (400 unit) Tablet 10 mcg PO DAILY RF: 0 Discharge Orders: Discharge Order (Routine); Ordered 04/14/20 Ordered By: Dmitry Hope/Other Patient Handouts: DVT Post Op Prevention Admission Data Admit Date/Time: 04/11/20 14:14 Attending Provider: Dmitry Penny Admit Provider: Alea Urrutia Primary Care Provider: Nick Gupta Other Providers: [facility] ; Alea Urrutia ; Francisco Castro ; Forest Lazaro Other Interventions: Discharge Summary Assessment (RN) Last Done: 04/14/20 11:48
== END 2020-04-14 17:32 | disposition home health service (06) | DRG 481 ==
LOC: ED 11:36 → 3W 14:14 → SUATTDRO 14:14 → 3W 16:45